=== PATIENT | female | born 2000 | race Caucasian/White ===

== ENCOUNTER 2025-02-27 18:49 | Emergency (ER) | payer OTHER, SELFPAY ==
[2025-02-27 19:00] VITALS: BP 128/77; PULSE 77; RESP 16; TEMP 36.8; O2SAT 100; BMI 24.0
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
[2025-02-27] MEDS: methocarbamoL 500 MG TABLET PO (19:37)
[2025-02-27] MEDS: IBUPROFEN 400 MG TABLET PO (19:37)
[2025-02-27] MEDS: ONDANSETRON 4 MG ODT SL (19:37)
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
[2025-02-27 21:26] VITALS: BP 115/73; PULSE 60; RESP 14; TEMP 37.1; O2SAT 99
== END 2025-02-27 21:39 | disposition home or self-care (01) ==
PROVIDERS: Emergency Provider Emergency Medicine
DX: S16.1XXA Strain of muscle, fascia and tendon at neck level, initial encounter (principal); S46.812A Strain of other muscles, fascia and tendons at shoulder and upper arm level, left arm, initial encounter; R51.9 Headache, unspecified; V43.52XA Car driver injured in collision with other type car in traffic accident, initial encounter; Y92.410 Unspecified street and highway as the place of occurrence of the external cause
CPT/HCPCS: 70450; 72125; 72141; 99283; 99284